=== PATIENT | female | born 1965 | race Caucasian/White ===

== ENCOUNTER 2017-03-18 16:49 | Emergency (ER) | payer BC ==
[2017-03-18] MEDS ORDERED: NS 0.9% 1000 ML* 1,000 ML IV ONE (18:14)
[2017-03-18] MEDS ORDERED: Pantoprazole IV* 40 MG IV ONE (18:14)
[2017-03-18] MEDS ORDERED: Ketorolac INJ* 15 MG/ML 1 ML VIAL IV ONE (18:14)
[2017-03-18 18:32] LABS: Hematocrit 40 % (35-47); Mean Corpuscular HGB Conc 35 g/dl (31-36); Mean Corpuscular Hemoglobin 30 pg (27-31); Mean Corpuscular Volume 87 fL (80-97); Mean Platelet Volume 6 um3 (7.4-10.4); Red Blood Count 4.64 10^6/ul (4.0-5.4); Red Cell Distribution Width 14 % (10.5-15); White Blood Count 7.5 10^3/ul (3.5-10.8)
--- NOTE | 2017-03-18 18:42 | RAD ---
HISTORY: Epigastric pain COMPARISONS: April 30, 2016 VIEWS:1: Single frontal portable view of the chest at 6:26 PM FINDINGS: LINES AND TUBES: None. CARDIOMEDIASTINAL SILHOUETTE: The cardiomediastinal silhouette is normal for portable technique. PLEURA: The costophrenic angles are sharp. No pleural abnormalities are noted. LUNG PARENCHYMA: The lungs are clear. ABDOMEN: The upper abdomen is clear. There is no subphrenic gas. BONES AND SOFT TISSUES: No bone or soft tissue abnormalities are noted. IMPRESSION: NO ACTIVE CARDIOPULMONARY DISEASE.
[2017-03-18 18:47] LABS: ALT 43 U/L (7-52); AST 40 U/L (13-39); Albumin 4.1 g/dL (3.2-5.2); Alkaline Phosphatase 84 U/L (34-104); Amylase 53 U/L (29-103); Anion Gap 7 mmol/L (2-11); BUN/Creatinine Ratio 10.5 (8-20); Blood Urea Nitrogen 8 mg/dL (6-24); CO2 Carbon Dioxide 23 mmol/L (22-32); Calcium 9.4 mg/dL (8.6-10.3); Chloride 106 mmol/L (101-111); Creatine Kinase 69 U/L (10-223); EGFR African American 103.2 (>60); EGFR Non-African American 80.2 (>60); Globulin 2.7 g/dL (2-4); Glucose 96 mg/dL (70-100); Lipase 24 U/L (11.0-82.0); Magnesium 2.1 mg/dL (1.9-2.7); Potassium 3.8 mmol/L (3.5-5.0); Sodium 136 mmol/L (133-145); Total Protein 6.8 g/dL (6.4-8.9)
[2017-03-18 18:55] LABS: Urine Bacteria Absent (Absent); Urine Bilirubin Negative (Negative); Urine Glucose Negative (Negative); Urine Nitrite Negative (Negative)
--- NOTE | 2017-03-18 19:08 | RAD ---
HISTORY: Epigastric pain COMPARISONS: CT dated June 26, 2011 TECHNIQUE: Multiple transverse and longitudinal ultrasound images were obtained of the right upper quadrant of the abdomen using grayscale and color Doppler imaging. FINDINGS: LIVER: The liver is normal in shape, size, contour, and echogenicity. There are no focal parenchymal masses. There is normal hepatopedal flow of the portal vein on Doppler imaging. BILIARY TREE: There is no intrahepatic or extrahepatic biliary dilatation. The common duct measures 0.3 cm. GALLBLADDER: The gallbladder is distended. Multiple shadowing echogenic foci consistent with gallstones are noted. There is no gallbladder wall thickening, pericholecystic fluid, or sonographic Guevara sign. PANCREAS: The head of the pancreas is unremarkable. The tail of the pancreas is not well visualized secondary to overlying bowel gas. RIGHT KIDNEY: The right kidney is normal in shape, size, contour, and echogenicity. There is no hydronephrosis or nephrolithiasis. The right kidney measures 10.1 x 4.7 x 4.5 cm. AORTA AND IVC: The aorta and IVC are unremarkable. FLUID: There are no pleural effusions. There is no free fluid within the hepatorenal recess. OTHER FINDINGS: None. IMPRESSION: CHOLELITHIASIS, WITHOUT SONOGRAPHIC FEATURES OF ACUTE CHOLECYSTITIS.
[2017-03-18] MEDS ORDERED: Iohexol 300* (CONTRAST) 10 ML SDV IV ONE (19:31)
[2017-03-18] MEDS ORDERED: Morphine INJ* 4 MG/ML 1 ML SYRINGE IV ONE (19:32)
[2017-03-18] MEDS ORDERED: Ondansetron INJ* 2 MG/ML VIAL IV ONE (19:33)
[2017-03-18 20:46] VITALS: BP 140/76
--- NOTE | 2017-03-18 20:57 | RAD ---
CLINICAL HISTORY: Epigastric pain, history of colon cancer in situ COMPARISON: Ultrasound dated March 18, 2017, CT dated June 26, 2011 TECHNIQUE: Multiple contiguous axial CT scans were obtained of the abdomen and pelvis after the administration of intravenous contrast. Coronal and sagittal multiplanar reformations are submitted for review. Oral contrast was administered. Delayed images were obtained through the abdomen and pelvis. FINDINGS: LUNG BASES: The lung bases are clear. LIVER: The liver is normal in shape, size, contour, and attenuation. BILE DUCTS: There is no intrahepatic or extrahepatic biliary dilatation. GALLBLADDER: The calculi noted on sonography are not well-visualized on the current CT examination. PANCREAS: The pancreas is normal, without mass or ductal dilatation. SPLEEN: Normal in size and appearance. UPPER GI TRACT: Evaluation of the gastrointestinal tract is limited by incomplete gastric distention. Narrowing of the pylorus resolves on delayed imaging consistent with an artifact of peristalsis. SMALL BOWEL AND MESENTERY: The small bowel is normal in contour, course, and caliber. There is no obstruction or dilatation. COLON: There are scattered diverticula of the distal colon without pericolonic inflammatory change. There is a tubular, vermiform, hollow viscus that is blind ending, and originates from the cecum, consistent with a normal appendix. There is no periappendiceal inflammatory change. This is best seen on axial images 62 through 67 ADRENALS: Normal bilaterally. KIDNEYS: The kidneys are normal in shape, size, contour, and axis. There is no hydronephrosis or nephrolithiasis. BLADDER: The bladder is smooth in contour. PELVIC ORGANS: The uterus is normal for technique. Bilateral ovarian cysts are noted measuring up to 3.7 cm. AORTA: The aorta is normal. IVC: Unremarkable LYMPH NODES: There is no lymphadenopathy by size criteria. ABDOMINAL WALL: There is a small fat-containing umbilical hernia. BONES AND SOFT TISSUES: Unremarkable OTHER: None IMPRESSION: 1. SCATTERED DIVERTICULA OF THE COLON. 2. BILATERAL OVARIAN CYSTS. 3. NO ACUTE CT PATHOLOGY OF THE VISUALIZED ABDOMEN OR PELVIS.
[2017-03-18] MEDS ORDERED: Lidocaine 2% VISCOUS* 15 ML UDC PO ONE (21:19)
[2017-03-18] MEDS ORDERED: Al Hydrox/Mg Hydrox/Simet LIQ* 30 ML UDC PO ONE (21:19)
--- NOTE | 2017-03-18 22:58 | ED ---
Emperatriz Ortega Edward, scribed for Cindi Dooley MD on 03/18/17 at 1802 . Abdominal Pain/Female - HPI Summary HPI Summary: 52 y/o female presents to ED c/o intermittent ABD pain in the epigastric region starting two days ago. The pain radiates to the mid ABD intermittently, and is rated 8/10 in severity. It is described as a "gassy pain". Associated sx: constipation since two days ago, subjective fevers three and two nights ago. Pt passed flatus. Denies N/V, decrease in appetite. PMHx diverticulosis, kidney stone - pt states it "feels nothing like a kidney stone", hx carcinoma in situ dx'ed on polyp biopsy from colonoscopy with subsequent negative colonoscopies. SHx FHx father from colon CA. Pt is currently on her period. G/P/A - . - History of Current Complaint Chief Complaint: EDAbdPain Stated Complaint: ABD PAIN Time Seen by Provider: 03/18/17 17:56 Hx Obtained From: Patient Hx Last Menstrual Period: present ?: No Onset/Duration: Gradual Onset, Lasting Days - Two days ago, Still Present Timing: Constant Severity Initially: Severe Severity Currently: Severe Pain Intensity: 8 Pain Scale Used: 0-10 Numeric Location: Epigastric Radiates: Yes Radiates to: Other - Mid ABD Character: Other: - Gaseous Aggravating Factor(s): Nothing Alleviating Factor(s): Nothing Associated Signs and Symptoms: Positive: Fever - subjective, Constipation. Negative: Decreased Appetite, Nausea, Vomiting Allergies/Adverse Reactions: Allergies Allergy/AdvReac Type Severity Reaction Status Date / Time Meclizine Allergy Hives Verified 03/18/17 18:03 SEA FOOD Allergy Severe Anaphylatic Uncoded 03/18/17 19:45 Shock PMH/Surg Hx/FS Hx/Imm Hx Previously Healthy: No Respiratory History: Reports: Hx Asthma - exercise-induced GI History: Reports: Other GI Disorders - carcinoma in situ of the colon - Surgical History Surgery Procedure, Year, and Place: sinus surgery x3, hemorrhoidectomy Infectious Disease History: No Infectious Disease History: Denies: Traveled Outside the [place] in Last 30 Days - Family History Known Family History: Positive: Hypertension, Respiratory Disease, Other - Colon [place] - father - Social History Occupation: Employed Full-time Lives: With Family Alcohol Use: Occasionally Hx Substance Use: No Substance Use Type: Reports: None Hx Tobacco Use: No Smoking Status (MU): Never Smoked Tobacco Review of Systems Positive: Fever - subjective Eyes: Negative ENT: Negative Cardiovascular: Negative Respiratory: Negative Positive: Abdominal Pain, Other - Constipation. Negative: Vomiting, Nausea Genitourinary: Negative Musculoskeletal: Negative Skin: Negative Neurological: Negative Psychological: Normal All Other Systems Reviewed And Are Negative: Yes Physical Exam Triage Information Reviewed: Yes Vital Signs On Initial Exam: Initial Vitals Temp Pulse Resp BP Pulse Ox 98.5 F 83 20 152/73 99 03/18/17 16:50 03/18/17 16:50 03/18/17 16:50 03/18/17 16:50 03/18/17 16:50 Vital Signs Reviewed: Yes Appearance: Positive: Well-Appearing, No Pain Distress Skin: Positive: Warm, Skin Color Reflects Adequate Perfusion Head/Face: Positive: Normal Head/Face Inspection Eyes: Positive: Conjunctiva Clear ENT: Positive: Normal ENT inspection Neck: Positive: Supple Respiratory/Lung Sounds: Positive: Clear to Auscultation, Breath Sounds Present Cardiovascular: Positive: RRR, Pulses are Symmetrical in both Upper and Lower Extremities, Other - Brisk capillary refill Abdomen Description: Positive: No Organomegaly, Soft, Other: - Epigastric tenderness. Negative: CVA Tenderness (R), CVA Tenderness (L), Distended, Guarding, Hepatomegaly, McBurney's Point Tenderness, Peritoneal Signs, Pulsatile Mass, Splenomegaly Bowel Sounds: Positive: Present Musculoskeletal: Positive: Strength/ROM Intact Neurological: Positive: Sensory/Motor Intact, Alert, Oriented to Person Place, Time, Facial Symmetry, Speech Normal Psychiatric: Positive: Normal - Jazlyn Coma Scale Coma Scale Total: 15 Diagnostics - Vital Signs Vital Signs Temp Pulse Resp BP Pulse Ox 03/18/17 16:57 99.2 F 86 18 150/92 97 03/18/17 16:50 98.5 F 83 20 152/73 99 - Laboratory Lab Results: Lab Results 03/18/17 03/18/17 03/18/17 Range/Units 18:01 18:01 18:01 WBC 7.5 (3.5-10.8) 10^3/ul RBC 4.64 (4.0-5.4) 10^6/ul Hgb 14.0 (12.0-16.0) g/dl Hct 40 (35-47) % MCV 87 (80-97) fL MCH 30 (27-31) pg MCHC 35 (31-36) g/dl RDW 14 (10.5-15) % Plt Count 277 (150-450) 10^3/ul MPV 6 L (7.4-10.4) um3 Neut % (Auto) 61.7 (38-83) % Lymph % (Auto) 22.2 L (25-47) % Jenkins % (Auto) 8.5 (1-9) % Eos % (Auto) 6.9 H (0-6) % Baso % (Auto) 0.7 (0-2) % Absolute Neuts (auto) 4.6 (1.5-7.7) 10^3/ul Absolute Lymphs (auto) 1.7 (1.0-4.8) 10^3/ul Absolute Monos (auto) 0.6 (0-0.8) 10^3/ul Absolute Eos (auto) 0.5 (0-0.6) 10^3/ul Absolute Basos (auto) 0 (0-0.2) 10^3/ul Absolute Nucleated RBC 0.01 10^3/ul Nucleated RBC % 0.1 INR (Anticoag Therapy) (0.89-1.11) APTT (26.0-36.3) seconds Sodium 136 (133-145) mmol/L Potassium 3.8 (3.5-5.0) mmol/L Chloride 106 (101-111) mmol/L Carbon Dioxide 23 (22-32) mmol/L Anion Gap 7 (2-11) mmol/L BUN 8 (6-24) mg/dL Creatinine 0.76 (0.51-0.95) mg/dL Est GFR ( Amer) 103.2 (>60) Est GFR (Non-Af Amer) 80.2 (>60) BUN/Creatinine Ratio 10.5 (8-20) Glucose 96 (70-100) mg/dL Lactic Acid 0.8 (0.5-2.0) mmol/L Calcium 9.4 (8.6-10.3) mg/dL Magnesium 2.1 (1.9-2.7) mg/dL Total Bilirubin 0.70 (0.2-1.0) mg/dL AST 40 H (13-39) U/L ALT 43 (7-52) U/L Alkaline Phosphatase 84 (34-104) U/L Total Creatine Kinase 69 (10-223) U/L Troponin I 0.00 (<0.04) ng/mL C-Reactive Protein 17.50 H (< 5.00) mg/L Total Protein 6.8 (6.4-8.9) g/dL Albumin 4.1 (3.2-5.2) g/dL Globulin 2.7 (2-4) g/dL Albumin/Globulin Ratio 1.5 (1-3) Amylase 53 (29-103) U/L Lipase 24 (11.0-82.0) U/L Beta HCG, Quant < 0.60 mIU/mL Urine Color Urine Appearance Urine pH (5-9) Ur Specific [place] (1.010-1.030) Urine Protein (Negative) Urine Ketones (Negative) Urine Blood (Negative) Urine Nitrate (Negative) Urine Bilirubin (Negative) Urine Urobilinogen (Negative) Ur Leukocyte Esterase (Negative) Urine WBC (Auto) (Absent) Urine RBC (Auto) (Absent) Ur Squamous Epith Cells (Absent) Urine Bacteria (Absent) Urine Glucose (Negative) 03/18/17 03/18/17 Range/Units 18:01 18:45 WBC (3.5-10.8) 10^3/ul RBC (4.0-5.4) 10^6/ul Hgb (12.0-16.0) g/dl Hct (35-47) % MCV (80-97) fL MCH (27-31) pg MCHC (31-36) g/dl RDW (10.5-15) % Plt Count (150-450) 10^3/ul MPV (7.4-10.4) um3 Neut % (Auto) (38-83) % Lymph % (Auto) (25-47) % Jenkins % (Auto) (1-9) % Eos % (Auto) (0-6) % Baso % (Auto) (0-2) % Absolute Neuts (auto) (1.5-7.7) 10^3/ul Absolute Lymphs (auto) (1.0-4.8) 10^3/ul Absolute Monos (auto) (0-0.8) 10^3/ul Absolute Eos (auto) (0-0.6) 10^3/ul Absolute Basos (auto) (0-0.2) 10^3/ul Absolute Nucleated RBC 10^3/ul Nucleated RBC % INR (Anticoag Therapy) 0.92 (0.89-1.11) APTT 23.5 L (26.0-36.3) seconds Sodium (133-145) mmol/L Potassium (3.5-5.0) mmol/L Chloride (101-111) mmol/L Carbon Dioxide (22-32) mmol/L Anion Gap (2-11) mmol/L BUN (6-24) mg/dL Creatinine (0.51-0.95) mg/dL Est GFR ( Amer) (>60) Est GFR (Non-Af Amer) (>60) BUN/Creatinine Ratio (8-20) Glucose (70-100) mg/dL Lactic Acid (0.5-2.0) mmol/L Calcium (8.6-10.3) mg/dL Magnesium (1.9-2.7) mg/dL Total Bilirubin (0.2-1.0) mg/dL AST (13-39) U/L ALT (7-52) U/L Alkaline Phosphatase (34-104) U/L Total Creatine Kinase (10-223) U/L Troponin I (<0.04) ng/mL C-Reactive Protein (< 5.00) mg/L Total Protein (6.4-8.9) g/dL Albumin (3.2-5.2) g/dL Globulin (2-4) g/dL Albumin/Globulin Ratio (1-3) Amylase (29-103) U/L Lipase (11.0-82.0) U/L Beta HCG, Quant mIU/mL Urine Color Straw Urine Appearance Clear Urine pH 7.0 (5-9) Ur Specific [place] 1.005 L (1.010-1.030) Urine Protein Negative (Negative) Urine Ketones Negative (Negative) Urine Blood 3+ H (Negative) Urine Nitrate Negative (Negative) Urine Bilirubin Negative (Negative) Urine Urobilinogen Negative (Negative) Ur Leukocyte Esterase Negative (Negative) Urine WBC (Auto) 1+(6-10/hpf) H (Absent) Urine RBC (Auto) 1+(3-5/hpf) H (Absent) Ur Squamous Epith Cells Present H (Absent) Urine Bacteria Absent (Absent) Urine Glucose Negative (Negative) Result Diagrams: 03/18/17 18:01 03/18/17 18:01 Lab Statement: Any lab studies that have been ordered have been reviewed, and results considered in the medical decision making process. - Radiology CXR Xray Interpretation: No Acute Changes - NO ACTIVE CARDIOPULMONARY DISEASE. ED PHYSICIAN AGREEABLE Radiology Interpretation Completed By: Radiologist - CT ABD/PEL CT CT Interpretation: No Acute Changes - 1. SCATTERED DIVERTICULA OF THE COLON. 2. BILATERAL OVARIAN CYSTS. 3. NO ACUTE CT PATHOLOGY OF THE VISUALIZED ABDOMEN OR PELVIS. ED PHYSICIAN AGREEABLE CT Interpretation Completed By: Radiologist - Ultrasound No standard instances Ultrasound Interpretation: Positive (See Comments) - GALLBLADDER US - CHOLELITHIASIS, WITHOUT SONOGRAPHIC FEATURES OF ACUTE CHOLECYSTITIS. ED PHYSICIAN AGREEABLE Ultrasound Interpretation Completed By: Radiologist - Additional Comments Diagnostic Additional Comments: EKG - 18:31 - SR @ 86 BPM. Normal AV, IV, QTc. Normal axis. No acute changes. No previous EKG for comparison. Re-Evaluation - Re-Evaluation 1 Re-Evaluation Time: 18:26 Comment: Discuss imaging plan 2 Re-Evaluation Time: 19:13 Comment: Discussed US results 3 Re-Evaluation Time: 21:00 Comment: Discussed CT and lab results Abdominal Pain Fem Course/Dx - Course Course Of Treatment: 52 y/o female presents to ED c/o intermittent ABD pain in the epigastric region starting two days ago. The pain radiates to the mid ABD intermittently, and is rated 8/10 in severity. It is described as a "gassy pain ". Associated sx: constipation since two days ago, subjective fevers three and two nights ago. Pt passed flatus. Denies N/V, decrease in appetite. PMHx diverticulosis, kidney stone - pt states it "feels nothing like a kidney stone" . SHx FHx father from colon CA. Pt is currently on her period. G/P/ A - . EKG - 18:31 - SR @ 86 BPM. Normal AV, IV, QTc. Normal axis. No acute changes. No previous EKG for comparison. GALLBLADDER US - CHOLELITHIASIS, WITHOUT SONOGRAPHIC FEATURES OF ACUTE CHOLECYSTITIS. CXR SHOWS NO ACTIVE CARDIOPULMONARY DISEASE. ABD/PEL CT SHOWS 1. SCATTERED DIVERTICULA OF THE COLON. 2. BILATERAL OVARIAN CYSTS. 3. NO ACUTE CT PATHOLOGY OF THE VISUALIZED ABDOMEN OR PELVIS. - Diagnoses Differential Diagnosis: Positive: Appendicitis, Bowel Obstruction, Constipation , Diverticulitis, Gall Bladder Disease, Peptic Ulcer Disease, Renal Colic Provider Diagnoses: Acute epigastric pain, Cholelithiasis, Diverticulosis, Bilateral ovarian cysts Is Visit Related: No - Provider Notifications Discussed Care Of Patient With: Sarah ETIENNE Instructed by Provider To: Have Pt Call For Appt. Discharge - Discharge Plan Condition: Stable Disposition: HOME Patient Education Materials: Gallstones (ED), Epigastric Pain (ED) Forms: *Work Release Referrals: Khoi Fuller MD [Medical Doctor] - As Soon As Possible (this week for epigastric pain, eval for possible peptic ulcer disease; hx carcinoma in situ of the colon ) Sarah Brandt [Primary Care Provider] - Additional Instructions: We gave toradol 15mg IV, protonix 40mg IV, morphine 4mg IV, zofran 4mg IV and a GI cocktail with relief of your pain. We gave you a copy of your labs and CT, ultrasound and CXR. Have definite follow up with Dr. Fuller from GI as soon as possible. Return to the ER if you have any new or worsening symptoms. The documentation as recorded by the Emperatriz de la torre Edward accurately reflects the service I personally performed and the decisions made by , Cindi Dooley MD.
== END 2017-03-18 22:04 | disposition home or self-care (01) ==
LOC: ED 16:49
DX: N83.202 Unspecified ovarian cyst, left side (principal); N83.201 Unspecified ovarian cyst, right side; K80.20 Calculus of gallbladder without cholecystitis without obstruction; R10.13 Epigastric pain; R50.9 Fever, unspecified; K59.00 Constipation, unspecified; K57.90 Diverticulosis of intestine, part unspecified, without perforation or abscess without bleeding
CPT/HCPCS: 36415; 71010; 74177; 76705; 80053; 81003; 81015; 82150; 82550; 83605; 83690; 83735; 84484; 84702; 85025; 85610; 85730; 86140; 93005; 96374; 96375; 99285; A9270-GY; J1885; J2270; J2405; Q9967

== ENCOUNTER 2018-12-30 12:36 | Emergency (ER) | payer BC ==
[2018-12-30 13:01] VITALS: BP 122/85
--- NOTE | 2018-12-30 13:01 | UC ---
Respiratory Complaint HPI - HPI Summary HPI Summary: 53 yo female presents with sinus pain/pressure/congestion and post nasal drip for the last 5 days. She tells me that she has an extensive history of sinus problems and has had 3 surgeries in the past. She has not been taking anything OTC for her symptoms. Denies fever, chills, SOB, rash, sore throat. - History of Current Complaint Chief Complaint: UCRespiratory Stated Complaint: HEAD CONGESTION Time Seen by Provider: 12/30/18 13:01 Hx Obtained From: Patient Hx Last Menstrual Period: now Onset/Duration: Gradual Onset Severity Initially: Moderate Severity Currently: Moderate Pain Intensity: 7 Pain Scale Used: 0-10 Numeric Character: Cough: Nonproductive - Allergies/Home Medications Allergies/Adverse Reactions: Allergies Allergy/AdvReac Type Severity Reaction Status Date / Time meclizine [From Antivert] Allergy Unknown Verified 12/30/18 13:01 Reaction Details SEA FOOD Allergy Severe Anaphylatic Uncoded 12/30/18 13:01 Shock Home Medications: Home Medications Albuterol inh POWDER (NF) [Proair Respiclick] 1 puff PO Q4H PRN 12/30/18 [ History Confirmed 12/30/18] PMH/Surg Hx/FS Hx/Imm Hx Neurological History: Migraine - Surgical History Surgical History: Yes Surgery Procedure, Year, and Place: sinus surgery x3, hemorrhoidectomy - Family History Known Family History: Positive: Hypertension, Respiratory Disease, Other - Colon [place] - father - Social History Occupation: Employed Full-time Lives: With Family Alcohol Use: Rare Substance Use Type: None Smoking Status (MU): Never Smoked Tobacco Review of Systems All Other Systems Reviewed And Are Negative: Yes Constitutional: Positive: Negative Skin: Positive: Negative Eyes: Positive: Negative ENT: Positive: Nasal Discharge, Sinus Congestion, Sinus Pain/Tenderness Respiratory: Positive: Cough Cardiovascular: Positive: Negative Gastrointestinal: Positive: Negative Neurovascular: Positive: Negative Neurological: Positive: Negative Psychological: Positive: Negative Physical Exam - Summary Physical Exam Summary: GENERAL: NAD. WDWN. No pain distress. SKIN: No rashes, sores, lesions, or open wounds. HEENT: Head: AT/NC Eyes: EOM intact. Conjunctiva clear without inflammation or discharge. Ears: Hearing grossly normal. TMs intact, no bulging, erythema, or edema. Nose: Nasal mucosa mildly swollen and erythematous with yellow discharge. TTP maxillary and frontal sinus. Positive post nasal drip Throat: Posterior oropharynx without exudates, erythema, or tonsillar enlargement. Uvula midline. NECK: Supple. Nontender. No lymphadenopathy. CHEST: CTAB. No r/r/w. No accessory muscle use. Breathing comfortably and in no distress. CV: RRR. Without m/r/g. Pulses intact. NEURO: Alert. PSYCH: Age appropriate behavior. Triage Information Reviewed: Yes Vital Signs: Initial Vital Signs Temp 97.6 F 12/30/18 12:57 Pulse 71 12/30/18 12:57 Resp 18 12/30/18 12:57 BP 122/85 12/30/18 12:57 Pulse Ox 97 12/30/18 12:57 Vital Signs Reviewed: Yes Respiratory Course/Dx - Course Course Of Treatment: Sinusitis - Differential Dx/Diagnosis Provider Diagnosis: Sinusitis Discharge - Sign-Out/Discharge Documenting (check all that apply): Patient Departure All imaging exams completed and their final reports reviewed: No Studies - Discharge Plan Condition: Stable Disposition: HOME Prescriptions: Amoxicillin/Clavulanate TAB* [Augmentin TAB 875*] 875 mg PO BID #14 tab Fluconazole 150 MG TAB* [Diflucan 150 MG TAB*] 150 mg PO ONCE #1 tablet Patient Education Materials: Sinusitis (ED) Referrals: Yen Hook NP [Primary Care Provider] - Additional Instructions: If you develop a fever, shortness of breath, chest pain, new or worsening symptoms - please call your PCP or go to the ED immediately. - Billing Disposition and Condition Condition: STABLE Disposition: Home - Attestation Statements Provider Attestation: Per institutional requirements, I have reviewed the chart, however, I was not consulted specifically or made aware of this patient by the midlevel provider. I did not personally evaluate, interact with , or disposition this patient.
== END 2018-12-30 13:12 | disposition home or self-care (01) ==
LOC: UCEAST 12:36
DX: J32.9 Chronic sinusitis, unspecified (principal)
CPT/HCPCS: 99212; G0463

== ENCOUNTER 2019-09-08 11:40 | Emergency (ER) | payer BC ==
[2019-09-08 12:20] VITALS: BP 150/74
[2019-09-08 12:31] LABS: Influenza A Molecular POSITIVE (Negative)
--- NOTE | 2019-09-08 12:53 | UC ---
FLU HPI - HPI Summary HPI Summary: 54-year-old woman comes in with a chief complaint of influenza-like symptoms for the last 2-1/2 days. Patient has Fevers chills body aches cough chest congestion shortness of breath. Patient does have a history of bronchospasm when she still and has been using her nebulizer albuterol which does help some with the shortness of breath. Activity makes his shortness of breath worse. Patient is of right-sided splinting chest pain with coughing. - History of Current Complaint Chief Complaint: UCRespiratory Stated Complaint: FEVER, CONGESTION, COUGH Time Seen by Provider: 09/08/19 12:24 Hx Last Menstrual Period: 08/31/19 Pain Intensity: 0 - Allergy/Home Medications Allergies/Adverse Reactions: Allergies Allergy/AdvReac Type Severity Reaction Status Date / Time meclizine [From Antivert] Allergy Rash Verified 09/08/19 12:14 SEA FOOD Allergy Severe Anaphylatic Uncoded 09/08/19 12:14 Shock Home Medications: Home Medications Albuterol 2.5MG/3ML (0.083%)* [Ventolin 2.5 MG/3 ML NEB.ASHLEIGH*] 2.5 mg INH Q4H PRN 09/08/19 [History Confirmed 09/08/19] D-Methorphan/PE/Acetaminophen [Daytime Cold Multi-Symp Gelcap] 2 each PO BID PRN 09/08/19 [History Confirmed 09/08/19] PMH/Surg Hx/FS Hx/Imm Hx Previously Healthy: Yes Respiratory History: Asthma - Surgical History Surgical History: Yes Surgery Procedure, Year, and Place: sinus surgery x3, hemorrhoidectomy - Family History Known Family History: Positive: Hypertension, Respiratory Disease, Other - Colon [place] - father - Social History Alcohol Use: Rare Substance Use Type: None Smoking Status (MU): Never Smoked Tobacco Review of Systems All Other Systems Reviewed And Are Negative: Yes Constitutional: Positive: Fever, Chills, Other - see hpi Skin: Positive: Negative Eyes: Positive: Negative ENT: Positive: Nasal Discharge Respiratory: Positive: Shortness Of Breath, Cough, Other - see hpi Cardiovascular: Positive: Chest Pain - see hpi Gastrointestinal: Positive: Negative Motor: Positive: Negative Neurovascular: Positive: Negative Musculoskeletal: Positive: Myalgia Neurological/Mental Status: Positive: Headache Psychological: Positive: Negative Is Patient Immunocompromised?: No Physical Exam Triage Information Reviewed: Yes Appearance: No Pain Distress, Well-Nourished, Ill-Appearing - mild Vital Signs: Initial Vital Signs Temp 99.8 F 09/08/19 12:16 Pulse 108 09/08/19 12:16 Resp 17 09/08/19 12:16 BP 150/74 09/08/19 12:16 Pulse Ox 94 09/08/19 12:16 Vital Signs Reviewed: Yes Eye Exam: Normal Eyes: Positive: Conjunctiva Clear ENT: Positive: Pharynx normal, Nasal congestion, TMs normal Neck: Positive: Supple Respiratory: Positive: Lungs clear, Normal breath sounds, No respiratory distress Cardiovascular: Positive: Tachycardia Musculoskeletal: Positive: Strength Intact, ROM Intact Neurological: Positive: Alert, Muscle Tone Normal Psychological: Positive: Normal Response To Family, Age Appropriate Behavior Skin Exam: Normal Flu Course/Dx - Course Course Of Treatment: Influenza positive. Patient's past the 48 hour period for starting Tamiflu however she is short of breath and it's making her asthma worse. We discussed pros and cons of being on Tamiflu and patient prefers to be on the Tamiflu at this time. She has albuterol nebulizer at home which she is continuing to use. We discussed the possibility of getting a chest x-ray and the plan for the chest x-ray will be if patient does not improve worse than consider chest x- ray. Also at this time her bronchospasm is almost certainly due to influenza rather than a bacterial bronchitis. We discussed viral versus bacterial infections and the role of antibiotics. Patient feels most comfortable with a prescription for an antibiotic and steroids to be used if her breathing does not improve or gets worse. Patient should get reevaluated if not improving or worse. - Differential Dx/Diagnosis Provider Diagnosis: Influenza, Bronchospasm Discharge ED - Sign-Out/Discharge Documenting (check all that apply): Patient Departure All imaging exams completed and their final reports reviewed: No Studies - Discharge Plan Condition: Stable Disposition: HOME Prescriptions: DOXYcycline CAP(*) [DOXYcycline 100MG CAP(*)] 100 mg PO BID #20 cap Oseltamivir CAP* [Tamiflu CAP*] 75 mg PO BID #10 cap predniSONE 20 mg TAB [Deltasone 20 MG TAB*] 40 mg PO DAILY #10 tab Patient Education Materials: Influenza (ED), Bronchospasm (ED) Forms: *Work Release Referrals: Yen Hook NP [Primary Care Provider] - Additional Instructions: FOLLOW UP WITH YOUR DOCTOR IF NOT COMPLETELY IMPROVED. GET REEVALUATED SOONER IF NOT IMPROVED OR WORSE OR ANY QUESTIONS OR CONCERNS. - Billing Disposition and Condition Condition: STABLE Disposition: Home
== END 2019-09-08 13:03 | disposition home or self-care (01) ==
LOC: UCCORT 11:40
DX: J11.1 Influenza due to unidentified influenza virus with other respiratory manifestations (principal); J45.909 Unspecified asthma, uncomplicated; Z88.8 Allergy status to other drugs, medicaments and biological substances; Z91.013 Allergy to seafood; Z79.899 Other long term (current) drug therapy
CPT/HCPCS: 99212; G0463